=== PATIENT | male | born 1975 | race Two or more races ===

== ENCOUNTER 2019-07-16 08:12 | Emergency (ER) | payer OTHER ==
[~2019-07-16] VITALS: Ht 170.2 cm; Wt 79.4 kg
== END 2019-07-16 12:00 | disposition home or self-care (01) ==
LOC: ER 08:12
DX: B34.9 Viral infection, unspecified (principal); B96.0 Mycoplasma pneumoniae [M. pneumoniae] as the cause of diseases classified elsewhere